=== PATIENT | male | born 1965 | race Caucasian/White ===

== ENCOUNTER 2017-02-26 11:10 | Emergency (ER) | payer BC ==
[~2017-02-26] VITALS: Ht 170.2 cm; Wt 86.3 kg
[~2017-02-26 11:10] MED LIST: ATHLETE'S FOOT15 GM TP; BACTRIM 400 MG-1 TAB PO; BYSTOLIC10 MG PO; CIPROFLOXACIN500 M2 PO; DIFLUCAN 100MG100 MG PO; GLIPIZIDE/METFO1 TA1 PO; NORCO 325 MG-51 TAB PO; PREDNISONE 10MG10 MG PO; VENTOLIN H0.09 MG/Ac IH
--- OUTSIDE RECORDS SUMMARY | 2017-02-26 11:15 | External Medical Summary Rpt | CCD ---
Author Author [employer] Organization [employer] Address Unknown Phone Unavailable Purpose Continuity of Care Document - through 2016
--- OUTSIDE RECORDS SUMMARY | 2017-02-26 11:15 | External Medical Summary Rpt | CCD ---
Author Author , ANGEL ORTIZ Address Unknown Phone [email or web address] Purpose Continuity of Care Document - through 2016 Problems Code Diagnosis DOS Provider Status L73.2 HIDRADENITI S SUPPURATIVA
--- OUTSIDE RECORDS SUMMARY | 2017-02-26 11:15 | External Medical Summary Rpt | CCD ---
Demographics Preferred Language Maori Marital Status Unknown Sikhism Affiliation Unknown Race Unknown Ethnic Group Unknown Author Author , ANGEL ORTIZ Address Unknown Phone Immunization No patient found.
--- OUTSIDE RECORDS SUMMARY | 2017-02-26 11:15 | External Medical Summary Rpt | CCD ---
Author Author , ANGEL ORTIZ Address Unknown Phone [email or web address] Purpose Continuity of Care Document - through 2016 Problems Code Diagnosis DOS Provider Status L73.2 HIDRADENITI S SUPPURATIVA
--- OUTSIDE RECORDS SUMMARY | 2017-02-26 11:15 | External Medical Summary Rpt | CCD ---
Demographics Preferred Language Kiswahili Marital Status Unknown Faith Affiliation Unknown Race Unknown Ethnic Group Unknown Author Author , ANGEL ORTIZ Address Unknown Phone Immunization No patient found.
--- NOTE | 2017-02-26 12:01 | Urgent Treatment Center Report ---
History of Present Issue Date/Time Seen by Provider 02/26/17 1200 Visit Reason Pt arrived:Walked Presenting Problem:PT C/O OF WHEEZING, COUGH, AND SOA X'S 2WKS Location if Accident: Onset of symptoms date/time:/ or onset unknown for:MEDICAL HX UNKNOWN Have you (or family members/close friends) recently traveled outside the [place]? N If Yes, where/when: Have you had exposure to infectious disease within the past month? TB? Other? Specify: c/o "I either have bronchitis or it is my asthma". Hx of asthma w/ SOA and wheezing x 1 week. Occasional mild cough "but only if I am really active". Albuterol inhaler and/or nebs helped initially but not now. Neb 3x yesterday w/ inhaler inbetween. Last neb at 7am. No inhaler use since either. Hasn't taken or tried anything else. Reports sinus infection one month ago that resolved w/ unknown antibiotic. Denies fever, aches, chills. w/ similiar symptoms "but she is a smoker". Pt denies tobacco use. Denies DM. Reports elevated once w/ steroids but has since resolved. Has taken steroids multiple times in the past since then for asthma without any complications or concernes for DM. Source patient Exam Limitations no limitations ALLERGIES Coded Allergies: Penicillins (UNKNOWN 12/28/15) aspirin (RESPIRATORY DISTRESS 12/28/15) Home Medications Active Scripts GLIPIZIDE/METFORMIN HCL (Glipizide-Metformin 2.5-500 MG) 1 TAB PO BID #60 TAB Prov: 12/29/15 Reported Medications NEBIVOLOL HCL (Bystolic) 10 MG PO DAILY #30 TAB Albuterol Sulfate (Ventolin Hfa) 0.09 MG IH Q6HP PRN ASTHMA #18 History Medical History General CAD? No Angina: No AK: No Hypertension? Yes Hyperlipidemia? No CHF? No DVT? No PE? No COPD? No Asthma? Yes Anemia? No GERD? No Gastric ulcers? No GI Bleed? No Hernia? No Thyroid Problems? No Hypothyroidism? No CVA? No Seizures? No Diabetes? No Renal Insuffiency? No UTI? No Stones? No GB Disease: No Nephritic Syndrome? No Asplenia? No Hepatitis? No Sickle Cell Disease? No Arthritis? No Migraines? No Cataracts? No Glaucoma? No MRSA? No HIV? No TB? No Anxiety? No Depression? No Cancer? No More? No Immunization HX DT/Tetanus 5-10 Years Ago Pneumonia Refuses Surgical Hx Previous Surgery?Y SINUS SURGERY Family History Family HX Diabetes Yes CAD Yes Hypertension Yes Hyperlipidemia No Cancer No TB No Social History Smoking Hx Smoker: Former Smoker Tobacco: No Type Cigarettes Packs/day N/A Alcohol Alcohol: No Review of Systems All Other Systems Reviewed and Negative Constitutional see HPI Eyes denies drainage ENT denies: ear pain, nose discharge, nose congestion, throat pain. Respiratory see HPI Cardiovascular denies chest pain, denies palpitations Gastrointestinal denies no symptoms reported Musculoskeletal denies back pain Skin denies rash Psychiatric/Neurological denies headache, denies other (dizziness) Physical Exam Vital Signs Vital Signs Date Time Temp Pulse Resp B/P Pulse O2 O2 Flow FiO2 Ox Delivery Rate 02/26 1135 98.6 86 20 142/95 98 General Appearance normal appearance, no apparent distress Ear, Nose, Throat normal ENT inspection Neck non-tender, supple Respiratory Status Yes: trachea midline, chest symmetrical, non tender chest. No: respiratory distress, use of accessory muscles, pain on inspiration, pain on expiration, productive cough, non productive cough. Lung Sounds bilateral: rhonchi (minimal, scattered, all lobes), wheezing (Ant/post, all lobes, exp>insp). Cardiovascular regular rate/rhythm, no peripheral edema, no murmur Neurologic alert, oriented x 3 Mental status normal mood/affect Skin normal color, warm/dry Lymphatic no adenopathy Medical Decision Making LABS/Meds/Orders Pt receiving controlled substance in ED? No Results/Orders Current Medication Orders Sig/Juan Start time Last Medication Dose Route Stop Time Status Admin Albuterol/Ipratropium 3 ML ONCE ONE 02/265 DC 02/26 INH 02/27 1216 1214 Methylprednisolone 125 MG ONCE ONE 02/26 1215 DC 02/26 Sodium Succinate IM 02/266 1213 Methylprednisolone 0 .STK-MED ONE 02/262 DC Sodium Succinate .ROUTE Albuterol/Ipratropium 0 .STK-MED ONE 02/26 1211 DC INH Orders Procedure Date/time Status RT REQUEST DUONEB 02/26 120 Active CHEST(2 VIEWS-NOT PORTABLE) 02/26 1207 Active XRAY/CT/US XRAY/CT/US XRAY chest XR interpretation by reviewed by me (w/ Dr. Antoine, ER ) Xray Results no acute findings Progress [facility] Progress Notes Date 02/26/17 Time 1310 Comment Feels "much better". Feels he is breathing easier. Normal inspiratory breath sounds but expiratory wheezing although improved, remains throughout all lobes. Rhochi much improved. Departure Departure Time of Disposition 1314 Disposition DC Home or Self Care(routine) Clinical Impression Primary Impression: Asthma exacerbation Qualifiers: Asthma severity: moderate Asthma persistence: persistent Qualified Code: J45.41 - Moderate persistent asthma with (acute) exacerbation Condition STABLE Referrals NO REFERRAL Follow up with primary care or return to [facility]/ER for new, worsening or unimproved symptoms Patient Instructions DI for Asthma -- Adult Additional Instructions * Monitor Temp. Would not expect fever. Follow up if one develops * Inhaler or neb every 4-6 hours as needed like we discussed. Should help open airways and improve cough, wheezing, shortness of breath. * Start steroid tomorrow since you were given injection in clinic. Helps with inflammation therefore, cough and wheezing. Follow directions on package. Rvwd side effects. Pt reports they have taken them before. If you notice symptoms worsening as you taper, be sure to follow up. Discharge Counseling Counseled pt/family regarding diagnosis, test results, medications/RX, home care, follow up needs Prescriptions Current Visit Scripts Methylprednisolone (Medrol Dose Chavo) 4 MG PO UD #1 CHAVO TAKE DIRECTED ON PACKAGING ALBUTEROL (Proventil Hfa Inhaler) 1-2 PUFF IH Q4-6H PRN PRN SOA, wheezing #1 CAN at 1320
[2017-02-26] MEDS ORDERED: MEDROL 4MG. DOSE4 MG PO (13:17)
[2017-02-26] MEDS ORDERED: PROVENTIL0.09 MG/A1 IH (13:17)
[2017-02-26 13:23] VITALS: BP 142/95
--- NOTE | 2017-02-26 14:34 | RADIOLOGY REPORT PS360 ---
CHEST(2 VIEWS-NOT PORTABLE) INDICATION: Some shortness of breath and wheezing COMPARISON: PA and lateral chest 12/28/2015 FINDINGS: The lung alvarenga are well expanded and appear clear of infiltrate. The cardiomediastinal silhouette and vascularity are normal. The costophrenic angles are clear. The bony thorax is normal. IMPRESSION: Normal chest.
[2017-03-17] MEDS ORDERED: TAMIFLU 75MG CA75 MG PO (14:37)
[2017-03-17] MEDS ORDERED: PREDNISONE 10MG10 MG PO (14:37)
== END 2017-02-26 13:23 | disposition home or self-care (01) ==
LOC: UTC 11:10
DX: J45.31 Mild persistent asthma with (acute) exacerbation (principal); I10 Essential (primary) hypertension; Z88.0 Allergy status to penicillin; Z87.891 Personal history of nicotine dependence